=== PATIENT | male | born 1945 | race Two or more races ===

== ENCOUNTER 2018-10-28 17:46 | Inpatient (IN) | payer OTHER ==
[~2018-10-28] VITALS: Ht 172.7 cm; Wt 83.9 kg
[~2018-10-28 17:46] MED LIST: COZAAR50 MG PO; EPOGEN20000 UNIT SUBCUTANEO; SYNTHROID112 MCG PO
[2018-11-03] MEDS ORDERED: Intestinex CAP PO (11:37)
[2018-11-03] MEDS ORDERED: Neurin-Sl Tablet Sl SL (11:37)
[2018-11-03] MEDS ORDERED: PANTOPRAZOLE SO40 MG PO (11:37)
[2018-11-03] MEDS ORDERED: OXYC1TAB9 PO (11:37)
[2018-11-03] MEDS ORDERED: INTEGRA F CAPS1 EACH PO (11:38)
== END 2018-11-03 12:28 | disposition home or self-care (01) | DRG 330 ==
LOC: O/R 10-31 06:34 → CIR.AMB 10-31 13:35 → EDSTATUS 10-31 13:35 → SURH 10-31 13:54 → SURG 10-31 13:59
PROVIDERS: ADMIT Surgery
PROC: 07TC4ZZ Resection of Pelvis Lymphatic, Percutaneous Endoscopic Approach (ICD-10-PCS; 2018-10-31)
PROC: 0DJD8ZZ Inspection of Lower Intestinal Tract, Via Natural or Artificial Opening Endoscopic (ICD-10-PCS; 2018-10-31)
PROC: 0DTN4ZZ Resection of Sigmoid Colon, Percutaneous Endoscopic Approach (ICD-10-PCS; principal; 2018-10-31 13:15)
DX: C18.7 Malignant neoplasm of sigmoid colon (principal); C94.6 Myelodysplastic disease, not elsewhere classified; D50.0 Iron deficiency anemia secondary to blood loss (chronic); D69.6 Thrombocytopenia, unspecified; I11.9 Hypertensive heart disease without heart failure; R73.01 Impaired fasting glucose